=== PATIENT | female | born 1970 | race Two or more races ===

== ENCOUNTER → 2018-07-26 | Outpatient (CLI) | payer SELFPAY ==
--- NOTE | 2018-07-26 11:34 | KCIC ---
PQRS Compliance statement: One or more of the following individualized dose reduction techniques were utilized for this examination: 1. Automated exposure control. 2. Adjustment of the mA and/or kV according to patient size. 3. Use of iterative reconstruction technique. Indication:Left lower quadrant pain with guarding getting worse. Pain present for 6 months. TECHNIQUE: CT abdomen and pelvis without IV contrast with multiplanar reformats. COMPARISON: None FINDINGS: Limited evaluation of solid abdominal and pelvic organs due to lack of IV contrast. Heart is normal in size. No pericardial or pleural effusion. 2 mm nodule in the right middle lobe (series 2 image 2). Otherwise, clear lung bases. Noncontrast appearance of the liver, spleen, pancreas, adrenals within normal limits. Multiple gallstones noted. No pericholecystic fluid, inflammatory changes or gallbladder distention. 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 No nephrolithiasis or hydronephrosis. No free pelvic fluid or ascites. No enlarged retroperitoneal or pelvic adenopathy. Anteverted uterus. Urinary bladder demonstrates no radiopaque stones. No bowel obstruction. No diverticulosis. Normal appendix. No suspicious bony lesion. IMPRESSION: Limited evaluation of solid abdominal and pelvic organs due to lack of IV contrast. 1. No acute findings. 2. Cholelithiasis without imaging evidence of acute cholecystitis. Electronically signed by: Travon Shane DO (07/26/2018 11:31 AM) [id number]
== END | disposition home or self-care (01) ==
LOC: KCIC CT 11:02
PROVIDERS: ATTEND Family Medicine
DX: K80.20 Calculus of gallbladder without cholecystitis without obstruction (principal); R91.1 Solitary pulmonary nodule
CPT/HCPCS: 74176